=== PATIENT | female | born 1955 | race Caucasian/White ===

== ENCOUNTER → 2018-02-27 | Outpatient (CLI) | payer OTHER ==
[~2018-02-27] MED LIST: ACETAMINOPHEN-1 EAC1 PO; ALPRAZOLAM ER0.5 MG; AMOXICILLIN875 MG PO; BENTYL10 MG; CYCLOBENZAPRINE5 MG; FISH OIL + VIT1 EACH PO; FISH OIL 500 M1 EAC1; FLUOXETINE HCL20 M1 PO; GLUCOPHAGE1000 MG PO; HYDROCHLOROTH12.5 MG PO; HYDROCODON-ACE1 EACH PO; LEVAQUIN 500 M500 MG PO; LISINOPRIL20 MG PO; NAPROSYN500 MG PO; NEURONTIN 300300 M1 PO; OMEPRAZOLE40 MG PO; SIMVASTATIN40 MG; THERA-M CAPLET1 EACH PO; TRAMADOL HCL50 MG PO; VITAMIN D1000 UNI1
== END ==
LOC: M.MRI 02-07 08:30
DX: M47.892 Other spondylosis, cervical region (principal); M48.02 Spinal stenosis, cervical region; M50.322 Other cervical disc degeneration at C5-C6 level; R20.0 Anesthesia of skin